=== PATIENT | male | born 1960 | race Caucasian/White ===

== ENCOUNTER 2017-07-30 17:10 | Inpatient (IN) | payer OTHER ==
[~2017-07-30] VITALS: Ht 170.2 cm; Wt 113.4 kg
[~2017-07-30 17:10] MED LIST: ADA30 PO; ASPIR 8181 MG PO; ASPIR LOW81 MG PO; BACTRIM DS1 TAB PO; CHLORTHALIDONE25 MG PO; CLINDAMYCIN300 M1 PO; CLOPIDOGREL75 M1 PO; FERROUS GLUCON325 MG PO; GLIPIZIDE10 M2 PO; GLU10 PO; HUMULIN10 ML; HYDROCODONE BIT1 T11; KEFLEX500 MG PO; LAC PO; LANTUS SOLOS100 U/M1 SC; LANTUS SOLOS100 U/M1 SQ; LIPI20 PO; LOPRESSOR50 MG PO; METFORMIN HCL1000 MG PO; METOPROLOL TART50 MG PO; OMEPRAZOLE20 M2 PO; PANTOPRAZOLE SO40 M1 PO; PROCARDIA XL90 MG PO; SIMVASTATIN40 M1 PO; SMZ-TMP DS1 TAB PO; VITAMIN C500 M4 PO
--- NOTE | 2017-07-30 18:10 | NUR ---
PT AAOX4, AT BEDSIDE. PT STATES HE HAS A HX OF DM, AND THE "SORES" ON HIS LEGS ARE "NORMAL." CURRENTLY, PT HAS LARGE BLISTERS ON HIS RIGHT LE WITH CLEARISH, YELLOW DRAINAGE AND REDDENING TO BILATERAL LOWER EXTREMITIES. DENIES TRAUMA. STATES THAT SORES ON THE RIGHT LOWER LEG AND WAS ON HOME HEALTH AND ABX FOR 6 WEEKS, THE SORE HAD JUST HEALED.
[2017-07-30 18:30] LABS: BASOPHIL % 0.3 % (0-2); PLATELET COUNT 372 x10^3mcL (130-400); RED CELL DISTRIBUTION WIDTH 14.5 % (11.5-14.5)
[2017-07-30 18:40] LABS: ALBUMIN 1.9 g/dL (3.4-5.0); CALCIUM 8.3 mg/dL (8.5-10.1); CARBON DIOXIDE 25.8 mmol/L (21-32); TOTAL PROTEIN, SERUM 6.6 g/dL (6.4-8.2)
[2017-07-30 18:41] LABS: POTASSIUM SERUM 2.8 mmol/L (3.5-5.1)
--- NOTE | 2017-07-30 19:10 | NUR ---
REPORT GIVEN TO JAMES FIGUEROA NURSE. AWARE TO INFUSE K-RIDER AFTER UNASYN IS DONE.
--- NOTE | 2017-07-30 19:31 | NUR ---
PATIENT RESTING, DENIES ANY PAIN. POTASSIUM RIDER STARTED, BAG #1 INFUSING. REPORT GIVEN TO HEATHER. PATIENT TRANSPORTED TO ROOM 209A.
[2017-07-30 19:34] LABS: MAGNESIUM 1.7 mg/dL (1.8-2.4); PHOSPHOROUS 4.2 mg/dL (2.5-4.9)
[2017-07-30 19:35] LABS: CHOLESTEROL/HDL RATIO 2.7
[2017-07-30 19:44] LABS: FREE THYROXINE INDEX 2.7 ug/dL (1.4-4.5); T4(THYROXINE) 7.3 ug/dL (4.7-13.3)
[2017-07-30 19:51] LABS: T3 TOTAL 0.76 ng/mL
[2017-07-30 21:21] VITALS: BP 163/96
--- NOTE | 2017-07-30 21:26 | NUR ---
RECEIVED PT FROM ED VIA CLAY. ORIENTED PT TO ROOM AND SURROUNDINGS. IV NOTED TO LFA PATENT AND INTACT. TELE 16 PLACED ON PT READING SR WITH DEPRESSED ST SEGMENT AND PVCS. INSTRUCTED PT ON THE USE OF CALL LIGHT FOR ASSISTANCE. ENDORSED PT TO PRIMARY NURSE HEATHER
[2017-07-30 23:18] VITALS: BP 159/97
[2017-07-31 00:29] LABS: AMPHETAMINE QUAL UR POSITIVE (NEG <=1000)
--- NOTE | 2017-07-31 02:14 | NUR ---
PT AWAKE AND WATCHING TV AT THIS TIME . NO C/O DISCOMFORT OR PAIN.
--- NOTE | 2017-07-31 03:50 | NUR ---
INFORMED DR. OMER REGARDING MG LEVEL OF 1.7.
--- NOTE | 2017-07-31 04:58 | NUR ---
PT STILL AWAKE AND ASKED TO SIT ON THE CHAIR. PT ASSISTED TO THE CHAIR. PT STATED THAT AT HOME HE IS USUALLY AWAKE AT NIGHT AND HE SLEEPS IN THE MORNING. HE HAD NO C/O PAIN. HE REMAINS ALERT AND ORIENTED. PT HAD NO BM NOTED . HE VOIDS FREELY W/O DIFFICULTY. IVF NS AT 130 CC/HR INFUSING WELL VIA LTFA.
[2017-07-31 06:23] VITALS: BP 150/96; BP 152/93
--- NOTE | 2017-07-31 07:15 | NUR ---
SLEEPING. AWAKENS TO VERBAL. ALERT AND ORIENTED WITH SLURRRED SPEECH. BREATHING FREELY ON RA. DENIES ANY PAIN. TELE # [address] WAVE. NS INFUSING 130 CC HOUR. RIGHT LOWER LEG WRAPPED WITH CLEAN DRESSING. WEAK PEDAL PULSES. EDEMA NOTED TO LOWER LEGS 2+. INDEPENDENT W ADL'S. CALL LIGHT WITHIN REACH.
[2017-07-31 08:25] LABS: BASOPHIL % 0.3 % (0-2); PLATELET COUNT 398 x10^3mcL (130-400); RED CELL DISTRIBUTION WIDTH 14.6 % (11.5-14.5)
[2017-07-31 08:35] LABS: CARBON DIOXIDE 24.5 mmol/L (21-32); CREATININE SERUM 3.8 mg/dL (0.7-1.3); MAGNESIUM 1.6 mg/dL (1.8-2.4); POTASSIUM SERUM 3.5 mmol/L (3.5-5.1)
[2017-07-31 09:51] VITALS: BP 147/78
--- NOTE | 2017-07-31 12:39 | NUR ---
SEEN BY DR. AMES AEROSPACE ENGINEER OFFICER [employer]. REMOVED DRESSING TO VIEW CELLULITIS,WOUNDS AND EVAL RIGHT LOWER LEG. REPLACED CLEAN DRESSING. ELEVATED RT LOWER LEG ON 2 PILLOWS.
[2017-07-31 13:52] VITALS: BP 143/84
[2017-07-31 16:39] VITALS: BP 164/95
--- NOTE | 2017-07-31 17:18 | NUR ---
Nutrition Note Nutrition Consult: Severe malnutrition with obesity, diabetic Dx: Cellulitis PMHx: DM, HTN, HLD, CVA Ht: 67in, 5'7" Wt: 251#, 113.39kg BMI: 39.2kg/m2(obseity, class II) Labs: (07/31) Na:133L, BH, Ca:8L, M.6L, WBC:15.8H, (07/30) Alb:1.9L, A1C:10.8H Meds: Colace, Humulin, Prilosec, NS IV, Theragran, Zofran Current Diet Order:[facility] PO Intake: 07/31:B:80%, L:100% Skin: Michael Pt found with right leg cellulitis, per H&P. Per bed huddle this morning, pt is pending podiatry consult.Observed pt laying in bed. Pt does not meet malnutrition criteria. Pt is not 200% of IBW and albumin is not an indicator of malnutrition. Pt reports good appetite with no c/o N/V/D/C. Pt states he does not follow a diabetic diet at home and declined nutrition education at this time. Review indicated pt is a moderate priority risk at this time. RD to follow up per nutrition care policy and standards. Please contact RD should nutrition concerns arise earlier than expected follow up date. Pt will be followed up as moderate risk 08/03-
--- NOTE | 2017-07-31 19:25 | NUR ---
PT RECIEVED AAO REG RESP NO SOB V/S STABLE,KEPT CLEAN AND DRY TO TOUCH,MADE COMFORTABLE IN BED,IV INFUSING WELL WITH THE SITE PATENT AND INTACT,RT LOWER EXTRE WITH DRESSING WHICH IS CDI,NO PAIN REPORTED AT THIS TIME,CALL LIGHT EASY REACHED AND WILL CONTINUE TO MONITOR.
--- NOTE | 2017-07-31 19:29 | NUR ---
PT HAS RESTED AND SLEPT MOST OF THE SHIFT. NO C/O PAIN. STARTED ON LEVAQUIN IV. REGINASYN JONATHAN'D. CLEOCIN WILL START TONIGHT. INDEPENDENT W ADL'S. ENDORSED TO [place] BP 162/105. ATTEMPTED TO CALL DAY SHIFT RESIDENT, NO RETURN CALL.CALL LIGHT WITHIN REACH.
[2017-07-31 21:49] VITALS: BP 138/92
[2017-08-01 05:36] VITALS: BP 183/98
--- NOTE | 2017-08-01 06:32 | NUR ---
PT HAD A RESTING NIGHT MADE COMFORTABLE IN BED AND WILL CONTINUE TO MONITOR.
[2017-08-01 06:50] LABS: BASOPHIL % 0.4 % (0-2); PLATELET COUNT 415 x10^3mcL (130-400); RED CELL DISTRIBUTION WIDTH 14.7 % (11.5-14.5)
[2017-08-01 07:02] LABS: CALCIUM 8.6 mg/dL (8.5-10.1); CARBON DIOXIDE 21.8 mmol/L (21-32); CREATININE SERUM 3.6 mg/dL (0.7-1.3)
--- NOTE | 2017-08-01 08:00 | NUR ---
ALERT AND ORIENTED. AUDIBLE WHEEZING NOTED. SOB, ON RA. ENCOURAGED PT TO WEAR SUPPLEMENTAL 02. DENIES ANY PAIN. DR. HEREDIA PERFORMED EXCISIONAL DEBRIDEMENT TO RIGHT LOWER LEG/SANDRA AND APPLIED CLEAN DRESSING. ELEVTED ON PILLOWS X 2. NS INFUSING 130 CC HOUR. CALL LIGHT WITHIN REACH. WILL SPEAK TO RESIDENT ABOUT ORDER FOR RT.
[2017-08-01 09:24] VITALS: BP 167/100
[2017-08-01 10:04] VITALS: BP 167/100
--- NOTE | 2017-08-01 10:53 | NUR ---
PT WAS HAVING SOB, AUDIBLE WHEEZING. PLACED ON 02 5L NC. SPOKE WITH RESIDENT WHO ORDERED RT. HAS RECEIVED BREATHING TX, PLACED ON OXIMIZER. BLOOD GAS WILL BE DRAWN. PT SLEEPING OFF AND ON. REDUCED NS INFUSION FROM 130 TO 20 PER RESIDENT REQUEST. RESIDENT WILL CHANGE INFUSION RATE.
[2017-08-01 13:50] VITALS: BP 156/88
[2017-08-01 16:41] VITALS: BP 155/87
--- NOTE | 2017-08-01 19:21 | NUR ---
ON BIPAP AND RT PROTOCOL. NON COMPLIANT WITH BIPAP. HAS TAKEN OFF MULTIPLE TIMES THIS SHIFT. VERY SOB. GASPS FOR AIR. CONSULT ORDER FOR GILDA. SEEN BY PRODUCTION POTTER BOOKKEEPERS SUPERVISOR. STARTED ONLASIX IV. FIRST DOSE ADMIN. IV FLUIDS REDUCED TO 10 CC HOUR. NO C/O PAIN. PT TO KEEP RIGHT FOOT ELEVATED ON PILLOWS X 2. POOR COMPLIANCE WITH THAT ALSO. DRESSING CDI. CALL LIGHT WITHIN REACH.
--- NOTE | 2017-08-01 20:03 | NUR ---
08/01/2017 1930 RECEIVED PATIENT FROM DAY SHIFT RN. PT IS ON BIPAP AND IS SLEEPING AT THIS TIME WITH NO S/SX RESPIRATORY DISTRESS. LUNG SOUNDS ARE WHEEZY DUE TO POSS FLUID OVERLOAD. IV FLUIDS HAVE BEEN D/C TO LOWER EDEMA. LASIX ADDED. ORDERS ACKNOWLEDGED. PT HAS HX OF STROKE WITH RESIDUAL GENERAL WEAKNESS. SCDS ON L LEG ONLY DUE TO WOUNDS AT R FOOT AND LEG INCLUDING BLISTER/CELLULITIS. EXPLOSIVE ORDNANCE HANDLER WAS IN TODAY AND PROVIDED WOUND CARE. DRESSINGS ARE C/D AT THIS TIME. PER DAY SHIFT NURSE, PT HAS BEEN NONCOMPLIANT WITH RESPIRATORY REGIME, THEREFORE WILL MONITOR FOR DISTRESS THROUGHOUT SHIFT.
[2017-08-01 22:15] VITALS: BP 170/90
[2017-08-02 05:50] VITALS: BP 180/94
[2017-08-02 06:18] LABS: BASOPHIL % 0.5 % (0-2)
[2017-08-02 06:32] LABS: PLATELET COUNT 420 x10^3mcL (130-400)
[2017-08-02 06:41] LABS: CALCIUM 8.9 mg/dL (8.5-10.1); CARBON DIOXIDE 21.3 mmol/L (21-32); CREATININE SERUM 3.8 mg/dL (0.7-1.3); POTASSIUM SERUM 3.7 mmol/L (3.5-5.1)
--- NOTE | 2017-08-02 08:00 | NUR ---
LETHARGIC AND ORIENTED. CONTINUES ON BIPAP AND RT PROTOCOL. DENIES ANY PAIN. DRESSING TO RT LOWER LEG CDI. PT WILL NOT KEEP ELEVATED ON ANY PILLOWS. NON COMPLIANT WITH BIPAP. TAKES OFF FREQUENTLY SAT DROPS TO 77 % ON RA. PT WANTS TO GO HOME. EXPLAINED TO PT HE MAY BE IN GRAVE RESP DISTRESS IF HE LEAVES THE HOSPITAL THIS AM. NS INFUSING 10 CC HOUR. BREATHING LABORED. GENERALIZED WEAKNESS. CALL LIGHT WITHIN REACH. SCD TO LEFT LOWER EXT.
[2017-08-02 08:13] VITALS: BP 167/92
[2017-08-02 09:31] VITALS: BP 185/99
[2017-08-02 13:56] VITALS: BP 103/60
--- NOTE | 2017-08-02 15:11 | NUR ---
REPORTED TO DR. NEWBERRY THAT PTS BLOOD PRESSURE DOESNT SEEM TO BE WELL MANAGED. ALSO REPORTED 3 YESES ON SEPTIC REPORT SHEET.
[2017-08-02 17:39] VITALS: BP 175/96
--- NOTE | 2017-08-02 18:55 | NUR ---
CONTINUES TO BE NONCOMPLIANT WITH BIPAP. AMBULATED TO BR X 1 THIS SHIFT. USES URINAL. NS INFUSING 10 CC. LEVAQUIN AND CLEOCIN IV ABX. NO C/O PAIN. WEARS SCD TO LEFT LOWER EXT. WILL NOT KEEP RIGHT LOWER LEG ELEVATED. CALL LIGHT WITHIN REACH.
--- NOTE | 2017-08-02 19:47 | NUR ---
REC'D REPORT FROM DAY NURSE. AAOX4. SLURRED SPEECH. LAYING IN BED COMFORTABLY. NO DISTRESS NOTED. TELE# 16. LUNG SOUNDS ARE CTA. NO SOB. BIPAP IN PLACE. BREATHING EVEN AND UNLABORED. ABD IS ROUND AND ACTIVE X4. 2+ EDEMA NOTED BLE. IV ACCESS TO THE LFA @ 10 ML/HR. BED IN LOWEST POSITION. CALL LIGHT WITHIN REACH. WILL PROCEED TO THE PLAN OF CARE.
[2017-08-02 21:40] VITALS: BP 159/85
--- NOTE | 2017-08-02 22:23 | NUR ---
PT REFUSES TO USE THE BIPAP. HE STATED HE PREFERS TO USE THE OXYMIZER 5L. WILL CONT TO MONITOR.
--- NOTE | 2017-08-03 02:09 | NUR ---
ROUNDS MADE, PT IS SLEEPING WITH EYES CLOSED. FOUND OXYMIZER OFF PT. WOKE THE PT UP TO PLACE OXYMIZER BACK ON PT. NO SOB. BREATHING EVEN AND UNLABORED. WILL CONT TO MONITOR.
--- NOTE | 2017-08-03 04:25 | NUR ---
ROUNDS MADE, PT IS SLEEPING. FOUND OXYMIZER ON FLOOR. APPLIED IT BACK TO THE PT. NO DISTRESS NOTED. NO SOB. BREATHING EVEN AND UNLABORED. WILL CONT TO MONITOR.
[2017-08-03 05:34] VITALS: BP 181/106
--- NOTE | 2017-08-03 06:36 | NUR ---
PT SLEPT PERIODICALLY THROUGHOUT THE SHIFT. NO DISTRESS NOTED. ON OXYMIZER @ 5L. NO SOB. BREATHING EVEN AND UNLABORED. ALL NEEDS MET AND ATTENDED TO. IV ACCESS INTACT AND PATENT. WILL ENDORSE ALL CONTINUITY CARE TO ONCOMING NURSE.
[2017-08-03 06:50] VITALS: BP 180/98
[2017-08-03 07:01] LABS: BASOPHIL % 1.3 % (0-2)
[2017-08-03 07:16] LABS: PLATELET COUNT 469 x10^3mcL (130-400); RED CELL DISTRIBUTION WIDTH 14.8 % (11.5-14.5)
--- NOTE | 2017-08-03 07:45 | NUR ---
RECEIVED PT IN BED. ASSESSED AND DOCUMENTED. DENIES PAIN THIS TIME. SAFTEY PRECAUTIONS ON. WILL MONITOR.
[2017-08-03 07:52] LABS: CALCIUM 9.2 mg/dL (8.5-10.1); CARBON DIOXIDE 20.7 mmol/L (21-32); MAGNESIUM 1.6 mg/dL (1.8-2.4); PHOSPHOROUS 4.9 mg/dL (2.5-4.9); POTASSIUM SERUM 3.5 mmol/L (3.5-5.1)
[2017-08-03 08:05] LABS: CREATININE SERUM 4.1 mg/dL (0.7-1.3)
--- NOTE | 2017-08-03 09:00 | NUR ---
PODIATRIC DOCTOR CAME AND ASSESS THE WOUNS AND CHANGED DRESSING.
--- NOTE | 2017-08-03 09:10 | NUR ---
AND RESIDENTS DID ROUNDS. EXPLAINED THE PLAN OF CARE.
--- NOTE | 2017-08-03 09:30 | NUR ---
PAGED TO INFORM BUN=53 AND CREAT=4.1,NO ANSWER SO PAGE GATED.
[2017-08-03 10:25] VITALS: BP 141/97
[2017-08-03] MEDS ORDERED: LOP50 PO (11:24)
[2017-08-03] MEDS ORDERED: ZES20 PO (11:24)
--- NOTE | 2017-08-03 12:30 | NUR ---
CALLED AND INFORMED PT'S HER IS BEEN DISCHARGED AND PT IS AWARE ALSO. SAID SHE WILL COME .
[2017-08-03 13:57] VITALS: BP 141/97
[2017-08-03 14:00] VITALS: BP 161/88
--- NOTE | 2017-08-03 16:00 | NUR ---
AWARE ABOUT BP 161/88 AND RECHECKED AGAIN 30 MIN AFTER 156/84, THAT ALSO SHE IS AWARE. SAID PT CAN BE GO HOME. PT STABLE. ASYMPTAMATIC.
--- NOTE | 2017-08-03 17:10 | NUR ---
PT CAME, SHE SAID SHE WANTS TO TALK TO THE DOCTOR AND SHE DOESNOT WANT TO TAKE PT HOME AND SHE SAYING IT'S BECAUSE OF PT HAS FLUID IN THE LUNG.TRIED TO EXPLAIN ABOUT PT CONDITION STABLE AND DOCTOR DC THE PT BUT PT'S STILL DOESNOT UNDERSTAND.PAGED AND INFORMED ABOUT THAT. SHE SAID SHE WILL COME AND TALK TO THE PT'S .
[2017-08-03] MEDS ORDERED: GOOD SENSE ASPI81 M3 PO (17:19)
--- NOTE | 2017-08-03 17:25 | NUR ---
CAME AND SPOKE WITH PT'S .AFTER LONG CONVERSATION FINALLY AGREED TO TAKE HIM.
--- NOTE | 2017-08-03 17:40 | NUR ---
DISCHARGE INSTRUCTIONS GIVEN.PB SIGNED AND SENT WITH PT. IV AND TELE REMOVED. DC PICTURE TAKEN AND DRESSING CHANGED TO RLE. PT DENIES PAIN. STATION MECHANIC HELPER WHEELED PT DOWN TO LOBBY ACCOMPANIED WITH PT'S .PT DC HOME.
[2017-08-03] MEDS ORDERED: METOPROLOL TAR100 MG PO (18:00)
--- NOTE | 2017-08-04 07:47 | NUR ---
ECHOCARDIOGRAM NOT DONE PATIENT DISCHARGED
== END 2017-08-03 17:50 | disposition home or self-care (01) | DRG 570 ==
LOC: ED 17:10 → DU 18:51
PROVIDERS: Emergency Medicine; Student in an Organized Health Care Education/Training Program; ADMIT Family Medicine Sports Medicine
PROC: 0JBN0ZZ Excision of Right Lower Leg Subcutaneous Tissue and Fascia, Open Approach (ICD-10-PCS; principal; 2017-08-01)
DX: L03.115 Cellulitis of right lower limb (principal); N17.0 Acute kidney failure with tubular necrosis; E43 Unspecified severe protein-calorie malnutrition; J96.01 Acute respiratory failure with hypoxia; I50.43 Acute on chronic combined systolic (congestive) and diastolic (congestive) heart failure; D68.69 Other thrombophilia; E87.1 Hypo-osmolality and hyponatremia; I13.0 Hypertensive heart and chronic kidney disease with heart failure and stage 1 through stage 4 chronic kidney disease, or unspecified chronic kidney disease; E11.65 Type 2 diabetes mellitus with hyperglycemia; E87.6 Hypokalemia; E78.5 Hyperlipidemia, unspecified; Z89.411 Acquired absence of right great toe; Z68.39 Body mass index [BMI] 39.0-39.9, adult; Z79.84 Long term (current) use of oral hypoglycemic drugs; Z91.14 Patient's other noncompliance with medication regimen; Z89.421 Acquired absence of other right toe(s); E83.42 Hypomagnesemia; E83.51 Hypocalcemia; Z86.73 Personal history of transient ischemic attack (TIA), and cerebral infarction without residual deficits; E11.42 Type 2 diabetes mellitus with diabetic polyneuropathy; L85.3 Xerosis cutis; E11.22 Type 2 diabetes mellitus with diabetic chronic kidney disease; N18.9 Chronic kidney disease, unspecified
CPT/HCPCS: 82962; 83880; 84439; J0295; J0360; J1815; J1940; J1956; J3475; J3480; J3490; J7030; J7620; Q0092

== ENCOUNTER 2017-10-12 15:22 | Inpatient (IN) | payer OTHER ==
[~2017-10-12] VITALS: Ht 175.3 cm; Wt 108.0 kg
[~2017-10-12 15:22] MED LIST changes: +GOOD SENSE ASPI81 M3 PO; +LOP50 PO; +METOPROLOL TAR100 MG PO; +ZES20 PO
[2017-10-12 15:26] VITALS: Ht 175.3 cm; Wt 108.0 kg
[2017-10-12 17:34] LABS: BILIRUBIN TOTAL 0.67 mg/dL (0.20-1.00); CALCIUM 7.8 mg/dL (8.5-10.1); TOTAL PROTEIN, SERUM 6.6 g/dL (6.4-8.2)
[2017-10-12 17:35] LABS: ALBUMIN 2.2 g/dL (3.4-5.0)
[2017-10-12 17:36] LABS: CREATININE SERUM 4.3 mg/dL (0.7-1.3)
[2017-10-12 18:04] LABS: PLATELET COUNT 411 x10^3mcL (130-400); RED CELL DISTRIBUTION WIDTH 15.3 % (11.5-14.5)
[2017-10-12 20:02] VITALS: BP 176/100
[2017-10-12 20:04] VITALS: BP 176/100
[2017-10-12 22:34] LABS: CHOLESTEROL/HDL RATIO 3.9; PHOSPHOROUS 5.4 mg/dL (2.5-4.9)
[2017-10-12 22:42] LABS: FREE T4 1.08 ng/dL (0.76-1.46); FREE THYROXINE INDEX 2.7 ug/dL (1.4-4.5); T4(THYROXINE) 6.8 ug/dL (4.7-13.3)
[2017-10-12 22:45] LABS: T3 TOTAL 0.99 ng/mL
[2017-10-13 03:13] LABS: UA SPECIFIC GRAVITY 1.025 (1.005-1.035); microscopic required? YES; urine erythrocyte 1+ (NEGATIVE)
[2017-10-13 03:47] LABS: AMPHETAMINE QUAL UR POSITIVE (NEG <=1000)
[2017-10-13 06:16] VITALS: BP 190/101
[2017-10-13 07:25] LABS: BASOPHIL % 0.3 % (0-2); PLATELET COUNT 387 x10^3mcL (130-400)
[2017-10-13 07:27] LABS: RED CELL DISTRIBUTION WIDTH 15.4 % (11.5-14.5)
[2017-10-13 07:34] LABS: CARBON DIOXIDE 20.2 mmol/L (21-32); PHOSPHOROUS 5.4 mg/dL (2.5-4.9); POTASSIUM SERUM 3.6 mmol/L (3.5-5.1)
[2017-10-13 07:37] LABS: CREATININE SERUM 4.1 mg/dL (0.7-1.3)
[2017-10-13 13:56] VITALS: BP 166/88
[2017-10-13 17:10] VITALS: BP 136/71
[2017-10-13 21:39] VITALS: BP 166/86
[2017-10-14 05:19] VITALS: BP 161/96
[2017-10-14 06:39] LABS: BASOPHIL % 1.5 % (0-2); PLATELET COUNT 374 x10^3mcL (130-400)
[2017-10-14 06:40] LABS: CALCIUM 8.2 mg/dL (8.5-10.1); CARBON DIOXIDE 25.7 mmol/L (21-32); MAGNESIUM 2.1 mg/dL (1.8-2.4); POTASSIUM SERUM 4.2 mmol/L (3.5-5.1)
[2017-10-14 06:58] LABS: RED CELL DISTRIBUTION WIDTH 14.6 % (11.5-14.5)
[2017-10-14 08:51] VITALS: BP 166/98
[2017-10-14 12:05] VITALS: BP 144/83
[2017-10-14 18:00] VITALS: BP 163/62
[2017-10-14 19:07] LABS: APPEARANCE FLUID HAZY; COLOR FLUID PALE YELLOW; SOURCE FLUID THORACENTESIS
[2017-10-14 19:08] LABS: LYMPHOCYTE FLUID 64 %; MONOCYTE FLUID 8 %; RBC FLUID 121 /cumm; WBC FLUID 317 /cumm
[2017-10-14 21:21] VITALS: BP 170/98
[2017-10-15 05:46] VITALS: BP 197/100
[2017-10-15 06:06] LABS: BASOPHIL % 0.9 % (0-2); PLATELET COUNT 359 x10^3mcL (130-400)
[2017-10-15 06:27] LABS: CALCIUM 8.2 mg/dL (8.5-10.1); CARBON DIOXIDE 21.8 mmol/L (21-32); MAGNESIUM 2.1 mg/dL (1.8-2.4); PHOSPHOROUS 5.1 mg/dL (2.5-4.9); POTASSIUM SERUM 4.2 mmol/L (3.5-5.1)
[2017-10-15 06:29] LABS: RED CELL DISTRIBUTION WIDTH 15.6 % (11.5-14.5)
[2017-10-15 06:31] LABS: CREATININE SERUM 5.1 mg/dL (0.7-1.3)
[2017-10-15 10:18] VITALS: BP 188/98
[2017-10-15 13:11] VITALS: BP 166/93
[2017-10-15] MEDS ORDERED: LAC PO (15:08)
[2017-10-15] MEDS ORDERED: LEVAQUIN750 MG PO (15:10)
[2017-10-15] MEDS ORDERED: CLINDAMYCIN300 M1 PO (15:11)
[2017-10-15] MEDS ORDERED: NOR10 PO (15:20)
[2017-10-15] MEDS ORDERED: METOPROLOL TART25 M1 PO (15:22)
[2017-10-15] MEDS ORDERED: LANTI SQ (15:30)
[2017-10-15 15:58] VITALS: BP 181/101
[2017-10-15 16:18] VITALS: BP 161/92
[2017-10-15 16:40] VITALS: BP 136/81
== END 2017-10-15 17:05 | disposition home or self-care (01) | DRG 177 ==
LOC: ED 15:22 → DU 18:52
PROVIDERS: Emergency Medicine; ADMIT Family Medicine
PROC: 0W993ZZ Drainage of Right Pleural Cavity, Percutaneous Approach (ICD-10-PCS; principal; 2017-10-14)
PROC: 0W9B3ZZ Drainage of Left Pleural Cavity, Percutaneous Approach (ICD-10-PCS; 2017-10-15)
DX: J69.0 Pneumonitis due to inhalation of food and vomit (principal); N17.0 Acute kidney failure with tubular necrosis; I50.43 Acute on chronic combined systolic (congestive) and diastolic (congestive) heart failure; E43 Unspecified severe protein-calorie malnutrition; G92 Toxic encephalopathy; I16.1 Hypertensive emergency; I13.0 Hypertensive heart and chronic kidney disease with heart failure and stage 1 through stage 4 chronic kidney disease, or unspecified chronic kidney disease; N18.4 Chronic kidney disease, stage 4 (severe); D68.69 Other thrombophilia; J90 Pleural effusion, not elsewhere classified; E11.65 Type 2 diabetes mellitus with hyperglycemia; E11.51 Type 2 diabetes mellitus with diabetic peripheral angiopathy without gangrene; E78.5 Hyperlipidemia, unspecified; E66.9 Obesity, unspecified; E83.39 Other disorders of phosphorus metabolism; Z91.14 Patient's other noncompliance with medication regimen; Z86.73 Personal history of transient ischemic attack (TIA), and cerebral infarction without residual deficits; Z79.82 Long term (current) use of aspirin; Z68.35 Body mass index [BMI] 35.0-35.9, adult; G90.8 Other disorders of autonomic nervous system; E11.22 Type 2 diabetes mellitus with diabetic chronic kidney disease
CPT/HCPCS: 32555; 36600; 82962; 83880; 84439; 94150; C1729; J0360; J0696; J1644; J1940; J2543; J3490; J7030; J7620; Q0092

== ENCOUNTER 2017-12-01 11:24 | Inpatient (IN) | payer OTHER ==
[2017-12-01] VITALS (7 sets, daily range): BP systolic 154–170; BP diastolic 77–98; Ht 175.3 cm; Wt 113.9 kg
[~2017-12-01] VITALS: Ht 175.3 cm; Wt 113.9 kg
[~2017-12-01 11:24] MED LIST changes: +LANTI SQ; +LEVAQUIN750 MG PO; +METOPROLOL TART25 M1 PO; +NOR10 PO
[2017-12-01 12:54] LABS: ALKALINE PHOSPHATASE 114 U/L (46-116); ALT/SGPT 39 U/L (16-63); AST/SGOT 30 U/L (15-37); BILIRUBIN TOTAL 0.69 mg/dL (0.20-1.00); CALCIUM 7.9 mg/dL (8.5-10.1); CARBON DIOXIDE 21.6 mmol/L (21-32); CHLORIDE SERUM 103 mmol/L (98-107); POTASSIUM SERUM 4.5 mmol/L (3.5-5.1); SODIUM SERUM 139 mmol/L (136-145); TOTAL PROTEIN, SERUM 6.9 g/dL (6.4-8.2)
[2017-12-01 13:25] LABS: ALBUMIN 3.1 g/dL (3.4-5.0); CHOLESTEROL 127 mg/dL (<200); GFR1 10 mL/min
[2017-12-01 13:26] LABS: GLUCOSE SERUM 59 mg/dL (74-106)
[2017-12-01] MEDS ORDERED: PHOS LO PO (13:29)
[2017-12-01] MEDS ORDERED: HYDRALAZINE HY100 MG PO (13:29)
[2017-12-01] MEDS ORDERED: NEU300 PO (13:30)
[2017-12-01] MEDS ORDERED: GLUCOTROL10 MG PO (13:30)
[2017-12-01] MEDS ORDERED: SOD650 PO (13:30)
[2017-12-01] MEDS ORDERED: METOPROLOL TAR100 MG PO (13:31)
[2017-12-01] MEDS ORDERED: FUROSEMIDE40 MG PO (13:31)
[2017-12-01] MEDS ORDERED: ATORVASTATIN CA40 M1 PO (13:32)
[2017-12-01] MEDS ORDERED: CARTIA XT180 M1 PO (13:32)
[2017-12-01] MEDS ORDERED: METFORMIN HYD1000 M2 PO (13:32)
[2017-12-01] MEDS ORDERED: ZESTRIL20 MG PO (13:32)
[2017-12-01] MEDS ORDERED: ASPIRIN ADULT L81 M3 PO (13:33)
[2017-12-01] MEDS ORDERED: GOOD SENSE ASPI81 M3 PO (13:33)
[2017-12-01] MEDS ORDERED: IRON90 MG (13:33)
[2017-12-01] MEDS ORDERED: PROTONIX40 MG PO (13:33)
[2017-12-01] MEDS ORDERED: C500500 MG PO (13:34)
[2017-12-01 13:37] LABS: BASOPHIL % 0.7 % (0-2); PLATELET COUNT 327 x10^3mcL (130-400)
[2017-12-01 15:02] LABS: MAGNESIUM 2.4 mg/dL (1.8-2.4); PHOSPHOROUS 6.7 mg/dL (2.5-4.9)
[2017-12-01 15:15] LABS: CHOLESTEROL/HDL RATIO 2.7
[2017-12-01 15:19] LABS: T3 TOTAL 0.64 ng/mL
[2017-12-01 16:25] LABS: microscopic required? YES; urine erythrocyte NEGATIVE (NEGATIVE)
[2017-12-01 16:37] LABS: AMPHETAMINE QUAL UR NONE DETECTED (NEG <=1000)
[2017-12-01 16:50] LABS: FREE T4 0.99 ng/dL (0.76-1.46); FREE THYROXINE INDEX 2.3 ug/dL (1.4-4.5); T4(THYROXINE) 6.7 ug/dL (4.7-13.3)
[2017-12-02 05:56] VITALS: BP 170/86
[2017-12-02 06:07] VITALS: BP 148/87
[2017-12-02 08:19] LABS: BASOPHIL % 1.1 % (0-2); PLATELET COUNT 284 x10^3mcL (130-400)
[2017-12-02 08:20] LABS: RED CELL DISTRIBUTION WIDTH 15.7 % (11.5-14.5)
[2017-12-02 10:30] VITALS: BP 153/85
[2017-12-02 11:15] LABS: CALCIUM 7.5 mg/dL (8.5-10.1); CARBON DIOXIDE 21.6 mmol/L (21-32); MAGNESIUM 2.4 mg/dL (1.8-2.4); PHOSPHOROUS 6.4 mg/dL (2.5-4.9); POTASSIUM SERUM 4.4 mmol/L (3.5-5.1)
[2017-12-02 11:21] LABS: CREATININE SERUM 5.9 mg/dL (0.7-1.3)
[2017-12-02 13:54] VITALS: BP 143/86
[2017-12-02 18:15] VITALS: BP 156/82
[2017-12-02 21:58] VITALS: BP 161/83
[2017-12-03 06:17] VITALS: BP 172/80
[2017-12-03 07:06] LABS: BASOPHIL % 0.8 % (0-2); PLATELET COUNT 276 x10^3mcL (130-400)
[2017-12-03 07:12] LABS: RED CELL DISTRIBUTION WIDTH 15.7 % (11.5-14.5)
[2017-12-03 07:58] VITALS: BP 150/69
[2017-12-03 08:11] LABS: CALCIUM 8.2 mg/dL (8.5-10.1); MAGNESIUM 2.1 mg/dL (1.8-2.4); PHOSPHOROUS 6.1 mg/dL (2.5-4.9); POTASSIUM SERUM 4.8 mmol/L (3.5-5.1)
[2017-12-03 08:52] LABS: CREATININE SERUM 5.7 mg/dL (0.7-1.3)
[2017-12-03 13:10] VITALS: BP 148/74
[2017-12-03 17:07] VITALS: BP 174/94
[2017-12-03 22:15] VITALS: BP 158/76
[2017-12-04 00:57] VITALS: BP 142/79
[2017-12-04 05:31] VITALS: BP 154/84; BP 163/63
[2017-12-04 06:46] LABS: BASOPHIL % 0.5 % (0-2); PLATELET COUNT 296 x10^3mcL (130-400)
[2017-12-04 06:48] LABS: RED CELL DISTRIBUTION WIDTH 15.1 % (11.5-14.5)
[2017-12-04 06:51] LABS: CALCIUM 8.8 mg/dL (8.5-10.1); CARBON DIOXIDE 26.4 mmol/L (21-32); PHOSPHOROUS 4.6 mg/dL (2.5-4.9); POTASSIUM SERUM 4.1 mmol/L (3.5-5.1)
[2017-12-04 08:02] LABS: CREATININE SERUM 4.3 mg/dL (0.7-1.3)
[2017-12-04 09:54] VITALS: BP 146/72
[2017-12-04 14:06] VITALS: BP 136/68
[2017-12-04 17:28] VITALS: BP 136/68
[2017-12-04 17:38] VITALS: BP 146/56
== END 2017-12-04 19:14 | disposition home or self-care (01) | DRG 194 ==
LOC: ED 11:24 → DU 13:49
PROVIDERS: Family Medicine; Specialist; Surgery
PROC: B5191ZA Fluoroscopy of Inferior Vena Cava using Low Osmolar Contrast, Guidance (ICD-10-PCS; 2017-12-03)
PROC: B549ZZA Ultrasonography of Inferior Vena Cava, Guidance (ICD-10-PCS; 2017-12-03)
PROC: 5A1D70Z Performance of Urinary Filtration, Intermittent, Less than 6 Hours Per Day (ICD-10-PCS; 2017-12-03)
PROC: 06H033Z Insertion of Infusion Device into Inferior Vena Cava, Percutaneous Approach (ICD-10-PCS; principal; 2017-12-03 10:30)
DX: I13.2 Hypertensive heart and chronic kidney disease with heart failure and with stage 5 chronic kidney disease, or end stage renal disease (principal); N17.0 Acute kidney failure with tubular necrosis; J69.0 Pneumonitis due to inhalation of food and vomit; G93.41 Metabolic encephalopathy; I50.43 Acute on chronic combined systolic (congestive) and diastolic (congestive) heart failure; E44.0 Moderate protein-calorie malnutrition; Z86.73 Personal history of transient ischemic attack (TIA), and cerebral infarction without residual deficits; E78.00 Pure hypercholesterolemia, unspecified; Z89.421 Acquired absence of other right toe(s); E11.65 Type 2 diabetes mellitus with hyperglycemia; E83.39 Other disorders of phosphorus metabolism; E66.9 Obesity, unspecified; Z68.37 Body mass index [BMI] 37.0-37.9, adult; E11.22 Type 2 diabetes mellitus with diabetic chronic kidney disease; W06.XXXA Fall from bed, initial encounter; Y93.89 Activity, other specified; Y92.89 Other specified places as the place of occurrence of the external cause; Y99.8 Other external cause status; E11.21 Type 2 diabetes mellitus with diabetic nephropathy; D63.1 Anemia in chronic kidney disease; E11.51 Type 2 diabetes mellitus with diabetic peripheral angiopathy without gangrene; N18.6 End stage renal disease; E78.5 Hyperlipidemia, unspecified; Z79.82 Long term (current) use of aspirin; Z79.84 Long term (current) use of oral hypoglycemic drugs; Z79.899 Other long term (current) drug therapy; Z81.1 Family history of alcohol abuse and dependence; E11.649 Type 2 diabetes mellitus with hypoglycemia without coma; Z72.89 Other problems related to lifestyle; J44.1 Chronic obstructive pulmonary disease with (acute) exacerbation
CPT/HCPCS: 36600; 82962; 83880; 84439; 86580; A4301; G0480; J0690; J1644; J1815; J1940; J2001; J2250; J2270; J3010; J3490; J7030; J7620; Q0092

== ENCOUNTER 2017-12-10 15:08 | Inpatient (IN) | payer OTHER ==
[~2017-12-10] VITALS: Ht 167.6 cm; Wt 98.6 kg
[~2017-12-10 15:08] MED LIST changes: +ASPIRIN ADULT L81 M3 PO; +ATORVASTATIN CA40 M1 PO; +C500500 MG PO; +CARTIA XT180 M1 PO; +FUROSEMIDE40 MG PO; +GLUCOTROL10 MG PO; +HYDRALAZINE HY100 MG PO; +IRON90 MG; +METFORMIN HYD1000 M2 PO; +NEU300 PO; +PHOS LO PO; +PROTONIX40 MG PO; +SOD650 PO; +ZESTRIL20 MG PO
[2017-12-10 15:10] VITALS: Ht 167.6 cm; Wt 98.6 kg
[2017-12-10 17:16] LABS: BASOPHIL % 0.8 % (0-2); PLATELET COUNT 359 x10^3mcL (130-400)
[2017-12-10 17:40] LABS: ALKALINE PHOSPHATASE 86 U/L (46-116); ALT/SGPT 21 U/L (16-63); AST/SGOT 15 U/L (15-37); BILIRUBIN TOTAL 0.81 mg/dL (0.20-1.00); CALCIUM 8.6 mg/dL (8.5-10.1); CARBON DIOXIDE 26.9 mmol/L (21-32); CHLORIDE SERUM 101 mmol/L (98-107); POTASSIUM SERUM 4.1 mmol/L (3.5-5.1); SODIUM SERUM 133 mmol/L (136-145); TOTAL PROTEIN, SERUM 6.8 g/dL (6.4-8.2)
[2017-12-10 17:44] LABS: CHOLESTEROL 126 mg/dL (<200); GFR1 16 mL/min
[2017-12-10 17:45] LABS: CREATININE SERUM 4.2 mg/dL (0.7-1.3)
[2017-12-10 17:46] LABS: GLUCOSE SERUM 45 mg/dL (74-106)
[2017-12-10 19:50] LABS: MAGNESIUM 2.1 mg/dL (1.8-2.4); PHOSPHOROUS 3.5 mg/dL (2.5-4.9)
[2017-12-10 19:52] LABS: T3 TOTAL 1.06 ng/mL
[2017-12-10 19:54] LABS: CHOLESTEROL/HDL RATIO 3.1
[2017-12-10 19:59] VITALS: BP 139/48
[2017-12-10 20:01] LABS: FREE T4 1.07 ng/dL (0.76-1.46); FREE THYROXINE INDEX 2.6 ug/dL (1.4-4.5); T4(THYROXINE) 7.4 ug/dL (4.7-13.3)
[2017-12-11 05:10] VITALS: BP 152/72
[2017-12-11 06:45] LABS: CARBON DIOXIDE 25.6 mmol/L (21-32); POTASSIUM SERUM 4.4 mmol/L (3.5-5.1)
[2017-12-11 07:04] LABS: BASOPHIL % 0.6 % (0-2); PLATELET COUNT 322 x10^3mcL (130-400)
[2017-12-11 07:32] LABS: RED CELL DISTRIBUTION WIDTH 14.9 % (11.5-14.5)
[2017-12-11 08:14] LABS: CREATININE SERUM 4.6 mg/dL (0.7-1.3)
[2017-12-11 08:40] LABS: UA SPECIFIC GRAVITY 1.015 (1.005-1.035); microscopic required? YES; urine erythrocyte NEGATIVE (NEGATIVE)
[2017-12-11 08:55] LABS: AMPHETAMINE QUAL UR NONE DETECTED (NEG <=1000)
[2017-12-11 09:09] VITALS: BP 166/74
[2017-12-11 13:55] VITALS: BP 126/59
[2017-12-11 16:36] VITALS: BP 133/66
[2017-12-11 21:41] VITALS: BP 115/85
[2017-12-12 05:47] VITALS: BP 112/76
[2017-12-12 09:04] VITALS: BP 141/85
[2017-12-12] MEDS ORDERED: LEVEMIR100 U/M1 SC (09:56)
[2017-12-12 11:17] VITALS: BP 141/85
== END 2017-12-12 12:50 | disposition home or self-care (01) | DRG 52 ==
LOC: ED 15:08 → DU 18:05 → EDBEDREQ 18:07 → DU 19:33
PROVIDERS: Emergency Medicine; Family Medicine; Family Medicine Sports Medicine
PROC: 02HV33Z Insertion of Infusion Device into Superior Vena Cava, Percutaneous Approach (ICD-10-PCS; 2017-12-10)
PROC: 5A1D70Z Performance of Urinary Filtration, Intermittent, Less than 6 Hours Per Day (ICD-10-PCS; principal; 2017-12-11)
DX: G93.41 Metabolic encephalopathy (principal); N17.0 Acute kidney failure with tubular necrosis; I13.2 Hypertensive heart and chronic kidney disease with heart failure and with stage 5 chronic kidney disease, or end stage renal disease; E44.0 Moderate protein-calorie malnutrition; N18.6 End stage renal disease; E11.22 Type 2 diabetes mellitus with diabetic chronic kidney disease; E11.65 Type 2 diabetes mellitus with hyperglycemia; E11.42 Type 2 diabetes mellitus with diabetic polyneuropathy; K21.9 Gastro-esophageal reflux disease without esophagitis; E11.649 Type 2 diabetes mellitus with hypoglycemia without coma; E83.51 Hypocalcemia; E78.5 Hyperlipidemia, unspecified; D64.9 Anemia, unspecified; I65.21 Occlusion and stenosis of right carotid artery; E11.21 Type 2 diabetes mellitus with diabetic nephropathy; E66.9 Obesity, unspecified; E78.00 Pure hypercholesterolemia, unspecified; I69.351 Hemiplegia and hemiparesis following cerebral infarction affecting right dominant side; Z89.421 Acquired absence of other right toe(s); Z99.2 Dependence on renal dialysis; Z81.1 Family history of alcohol abuse and dependence; Z68.36 Body mass index [BMI] 36.0-36.9, adult
CPT/HCPCS: 82962; 83880; 84439; G0480; J3490; J7030; J7042

== ENCOUNTER 2018-03-07 19:25 | Emergency (ER) | payer OTHER ==
[~2018-03-07] VITALS: Ht 170.2 cm; Wt 104.3 kg
[~2018-03-07 19:25] MED LIST changes: +LEVEMIR100 U/M1 SC
[2018-03-07 20:43] VITALS: BP 00/00; Ht 170.2 cm; Wt 104.3 kg
== END 2018-03-07 23:33 | disposition expired ==
LOC: ED 19:25
DX: I46.9 Cardiac arrest, cause unspecified (principal); I11.0 Hypertensive heart disease with heart failure; I50.9 Heart failure, unspecified; E78.00 Pure hypercholesterolemia, unspecified; E11.22 Type 2 diabetes mellitus with diabetic chronic kidney disease; N18.6 End stage renal disease